=== PATIENT | male | born 1990 | race Caucasian/White ===

== ENCOUNTER 2021-04-09 14:10 | Emergency (ER) | payer MEDICAID ==
[~2021-04-09] VITALS: Ht 177.8 cm; Wt 81.7 kg
[2021-04-09] MEDS ORDERED: CEPHALEXIN500 M1 PO (15:40)
== END 2021-04-09 15:56 | disposition home or self-care (01) ==
LOC: ED 14:10
DX: L03.116 Cellulitis of left lower limb (principal); L03.115 Cellulitis of right lower limb
CPT/HCPCS: 99283; A9270